=== PATIENT | female | born 1965 ===

== ENCOUNTER 2021-08-03 15:12 | Emergency (ER) | payer SELFPAY ==
[~2021-08-03] VITALS: Ht 165 cm; Wt 70.0 kg
[2021-08-03 15:34] LABS: BASOPHILS # (AUTO) 0.1 10^3/uL (0.0-0.1); BASOPHILS % (AUTO) 1 % (0-10); EOSINOPHILS % (AUTO) 0 % (0-10); HEMATOCRIT 37 % (35-52); HEMOGLOBIN 13.3 g/dL (11.5-16.0); LYMPHOCYTES # (AUTO) 0.7 10^3/uL (1.0-4.0); LYMPHOCYTES % (AUTO) 4 % (12-44); MEAN CORPUSCULAR HEMOGLOBIN 28 pg (25-34); MEAN CORPUSCULAR HGB CONC 36 g/dL (32-36); MEAN CORPUSCULAR VOLUME 80 fL (80-99); MEAN PLATELET VOLUME 12.1 fL (9.0-12.2); MONOCYTES # (AUTO) 0.3 10^3/uL (0.0-1.0); MONOCYTES % (AUTO) 2 % (0-12); NEUTROPHILS # (AUTO) 14.1 10^3/uL (1.8-7.8); NEUTROPHILS % (AUTO) 92 % (42-75); PLATELET COUNT 399 10^3/uL (130-400); WHITE BLOOD COUNT 15.3 10^3/uL (4.3-11.0)
[2021-08-03 15:44] LABS: PROTHROMBIN TIME PATIENT 13.8 SEC (12.2-14.7)
--- NOTE | 2021-08-03 15:53 | Diagnostic Imaging Report ---
EXAMINATION: CT head without contrast. TECHNIQUE: Multiple contiguous axial images were obtained through the brain without the use of intravenous contrast. All CT scans use one or more of the following dose optimizing techniques: automated exposure control, MA and/or KvP adjustment based on patient size and exam type or iterative reconstruction. HISTORY: Altered mental status. COMPARISON: None available. FINDINGS: The talbot-white matter differentiation is normal. No mass effect or midline shift. The ventricles are normal in size and configuration. Basilar cisterns are patent. There are no intra- or extra-axial fluid collections. There is no intracranial hemorrhage. The orbits are normal. Paranasal sinuses are normal. Mastoid air cells are clear. No soft tissue abnormality is seen. No osseus lesions or fractures are seen. IMPRESSION: No acute intracranial abnormality. Dictated by: Dictated on workstation # [id number]
[2021-08-03 16:02] LABS: LYMPHOCYTES % (MANUAL) 3 %; MONOCYTES % (MANUAL) 4 %; NEUTROPHILS % (MANUAL) 93 %
[2021-08-03 16:03] LABS: POLYCHROMASIA SLIGHT; TARGET CELLS SLIGHT; TOXIC GRANULATION/VACUOLAZATIO 4+
[2021-08-03 16:07] LABS: CARBON DIOXIDE 27 MMOL/L (21-32); CHLORIDE 69 MMOL/L (98-107); POTASSIUM 4.8 MMOL/L (3.6-5.0); SODIUM 119 MMOL/L (135-145)
[2021-08-03 16:08] LABS: ALANINE AMINOTRANSFERASE 23 U/L (0-55); ALKALINE PHOSPHATASE 244 U/L (40-136); BILIRUBIN,TOTAL 0.4 MG/DL (0.1-1.0); BUN/CREATININE RATIO 25; CALCIUM 7.2 MG/DL (8.5-10.1); GFR ESTIMATED 10; GLUCOSE 115 MG/DL (70-105); MAGNESIUM 6.1 MG/DL (1.6-2.4); TOTAL PROTEIN 6.3 GM/DL (6.4-8.2)
[2021-08-03 16:09] LABS: AMYLASE 1882 U/L (25-125)
[2021-08-03 16:22] LABS: AMPHETAMINE SCREEN, URINE NEGATIVE (NEGATIVE); BARBITURATE SCREEN URINE NEGATIVE (NEGATIVE); BENZODIAZEPINES SCREEN URINE NEGATIVE (NEGATIVE); CANNABINOID SCREEN, URINE NEGATIVE (NEGATIVE); COCAINE SCREEN URINE NEGATIVE (NEGATIVE); METHADONE STAT NEGATIVE (NEGATIVE); METHAMPHETAMINE SCREEN URINE S NEGATIVE (NEGATIVE); OPIATE SCREEN URINE NEGATIVE (NEGATIVE); OXYCODONE STAT NEGATIVE (NEGATIVE); PROPOXYPHENE STAT NEGATIVE (NEGATIVE); TRICYCLIC ANTIDEPRESSANTS SCRE NEGATIVE (NEGATIVE)
[2021-08-03 16:27] LABS: CLARITY,URINE CLOUDY; COLOR,URINE YELLOW
[2021-08-03 16:28] LABS: BACTERIA,URINE LARGE /HPF; BILIRUBIN,URINE 1+ (NEGATIVE); GLUCOSE, URINE (UA) NEGATIVE (NEGATIVE); KETONES,URINE NEGATIVE (NEGATIVE); LEUKOCYTE ESTERASE ,URINE NEGATIVE (NEGATIVE); NITRITE,URINE NEGATIVE (NEGATIVE); PROTEIN,URINE 2+ (NEGATIVE)
--- NOTE | 2021-08-03 16:52 | Diagnostic Imaging Report ---
EXAMINATION: CT chest, abdomen and pelvis without intravenous contrast. TECHNIQUE: Multiple contiguous axial images were obtained through the chest, abdomen and pelvis without intravenous contrast. All CT scans use one or more of the following dose optimizing techniques: automated exposure control, MA and/or KvP adjustment based on patient size and exam type or iterative reconstruction. HISTORY: Sepsis. COMPARISON: None available. FINDINGS: There is mucous plugging in the right lower lobe with atelectasis or pneumonia and a small pleural effusion. No pneumothorax. No suspicious nodules. There is no axillary or supraclavicular lymphadenopathy. There is no mediastinal lymphadenopathy. Heart size is normal. There are no coronary artery calcifications. No pericardial effusion. Aorta is normal in caliber. There is perihepatic fluid, a portion of which is likely subcapsular. There is mass effect on the liver. No focal liver lesions are seen. There is no biliary ductal dilation. Gallbladder is normal. There is a 2.0 x 1.3 cm low attenuating area in the head of the pancreas. No ductal dilation or atrophy. Spleen is normal. Adrenal glands are normal. The kidneys are normal. There is no hydronephrosis. The urinary catheter is coiled in the urinary bladder. The bladder is mostly decompressed. The cecum is ill-defined and surrounded by fluid. The fluid leads to the paracolic gutter and the subcapsular liver collection. No free air is seen. No evidence for bowel obstruction. There is omental stranding. No abdominal or pelvic lymphadenopathy. Aorta is normal in caliber without aneurysm. There are no suspicious osseus lesions. IMPRESSION: 1. Poorly defined cecum surrounded by fluid and/or soft tissue with fluid collection extending towards the paracolic gutter and involving the subcapsular portion of the liver. This may represent a cecal mass or severe cecal inflammation, but mass is favored. Contrast-enhanced CT would be helpful but ultimately a colonoscopy would be required for definitive diagnosis. 2. The fluid about the liver and cecum may be infected. No free air is seen to indicate doug perforation. 3. Mucus plugging in the right lower lobe with a small right effusion and atelectasis or pneumonia in the right lower lobe. Dictated by: Dictated on workstation # [id number]
[2021-08-03] MEDS ORDERED: PIPERACILLIN SODIUM/TAZOBACTAM 4.5 GM in NS (IVPB) 100 ML IV ONE (17:30)
[2021-08-03] MEDS: NS IV 1000 ML 1,000 ML IV SCH ×2 (17:53→19:08)
[2021-08-03 19:11] LABS: ALLENS TEST NEGATIVE; INSPIRED O2 ROOM AIR; VENTILATOR NO
[2021-08-03 19:12] LABS: ABG OXYGEN SATURATION 93 % (94-100); ABG PCO2 36 MMHG (35-45); ABG PH 7.49 (7.37-7.43); ABG PO2 61 MMHG (79-93); ABG TCO2 28.5 MMOL/L (21.0-31.0)
[2021-08-03 19:36] VITALS: BP 117/59
--- NOTE | 2021-08-03 19:36 | ED Back Pain ---
General Chief Complaint: Back Problems Stated Complaint: AMS Nursing Triage Note: Patient has been brought to ER by EMS with vague complaint of back pain and stomach pain. Patient reports pain since May. Patient is very vague. Source of Information: Patient Exam Limitations: No Limitations History of Present Illness Date Seen by Provider: Aug 03, 2021 Time Seen by Provider: 14:00 Initial Comments Patient is a 56-year-old female who presents with home with complaints of chronic back pain for the past several months and increased confusion today. Patient has a history of alcohol abuse and drinks 18 beers daily. She has not drank in the past 24 hours. Patient is alert and oriented to person. She reports abdominal pain back pain and tenderness. She reports generalized weakness. She denies chest pain palpitations, cough, fever chills, nausea vomiting or sweats. History is limited as patient is a poor historian. No witnessed tremors seizures, hallucinations. Additional history obtained from her significant other. Location: Lumbar Spine Timing/Duration: Other Pain/Injury Location: Other Radiation: Other Method of Injury: Other Modifying Factors: Improves With Other Associated Symptoms: other Allergies and Home Medications Allergies Coded Allergies: No Known Drug Allergies (Unverified , 08/03/21) Patient Home Medication List Home Medication List Reviewed: Yes Review of Systems Constitutional: see HPI EENTM: see HPI Respiratory: see HPI Cardiovascular: see HPI Gastrointestinal: see HPI Genitourinary: see HPI : No Musculoskeletal: see HPI Skin: see HPI Psychiatric/Neurological: See HPI All Other Systems Reviewed Negative Unless Noted: Yes Past Eoofjam-Dyvfbf-Gsnfob Hx Patient Social History Tobacco Use?: Yes Tobacco type used: Cigarettes Smoking Status: Current Everyday Smoker Use of E-Cig and/or Vaping dev: No Substance use?: No Alcohol Use?: Yes Alcohol type: Beer Alcohol Frequency: Daily Pt feels they are or have been: Unable to obtain Physical Exam Vital Signs Vital Signs - First Documented 08/03/21 15:34 Temp 36.0 Pulse 110 Resp 18 B/P (MAP) 111/74 (86) Pulse Ox 100 O2 Delivery Room Air Capillary Refill : Height, Weight, BMI Height: '" Weight: lbs. oz. kg; 25.00 BMI Method: General Appearance: No Apparent Distress, Anxious, Other (Chronically ill- appearing) HEENT: PERRL/EOMI, Normal ENT Inspection, Pharynx Normal Neck: Non Tender, Supple Cardiovascular: Regular Rate, Rhythm, No Edema, No Gallop Respiratory: Lungs Clear Gastrointestinal: Soft, Distended, Tenderness (Periumbilical) Back: Normal Inspection, No CVA Tenderness Neurologic/Psychiatric: Alert, No Motor/Sensory Deficits Skin: Cool Progress/Results/Core Measures Results/Orders Lab Results Laboratory Tests Test 08/03/21 14:26 08/03/21 16:05 08/03/21 16:20 08/03/21 17:05 Range/Units White Blood Count 15.3 H 4.3-11.0 10^3/uL Red Blood Count 4.70 3.80-5.11 10^6/uL Hemoglobin 13.3 11.5-16.0 g/dL Hematocrit 37 35-52 % Mean Corpuscular Volume 80 80-99 fL Mean Corpuscular Hemoglobin 28 25-34 pg Mean Corpuscular Hemoglobin Concent 36 32-36 g/dL Red Cell Distribution Width 15.2 H 10.0-14.5 % Platelet Count 399 130-400 10^3/uL Mean Platelet Volume 12.1 9.0-12.2 fL Immature Granulocyte % (Auto) 2 % Neutrophils (%) (Auto) 92 H 42-75 % Lymphocytes (%) (Auto) 4 L 12-44 % Monocytes (%) (Auto) 2 0-12 % Eosinophils (%) (Auto) 0 0-10 % Basophils (%) (Auto) 1 0-10 % Neutrophils # (Auto) 14.1 H 1.8-7.8 10^3/uL Lymphocytes # (Auto) 0.7 L 1.0-4.0 10^3/uL Monocytes # (Auto) 0.3 0.0-1.0 10^3/uL Eosinophils # (Auto) 0.0 0.0-0.3 10^3/uL Basophils # (Auto) 0.1 0.0-0.1 10^3/uL Immature Granulocyte # (Auto) 0.3 H 0.0-0.1 10^3/uL Neutrophils % (Manual) 93 % Lymphocytes % (Manual) 3 % Monocytes % (Manual) 4 % Toxic Granulation 4+ Polychromasia SLIGHT Basophilic Stippling SLIGHT Target Cells SLIGHT Prothrombin Time 13.8 12.2-14.7 SEC INR Comment 1.0 0.8-1.4 Activated Partial Thromboplast Time 24 24-35 SEC Sodium Level 119 *L 135-145 MMOL/L Potassium Level 4.8 3.6-5.0 MMOL/L Chloride Level 69 L 98-107 MMOL/L Carbon Dioxide Level 27 21-32 MMOL/L Anion Gap 23 H 5-14 MMOL/L Blood Urea Nitrogen 120 *H 7-18 MG/DL Creatinine 4.80 H 0.60-1.30 MG/DL Estimat Glomerular Filtration Rate 10 BUN/Creatinine Ratio 25 Glucose Level 115 H 70-105 MG/DL Lactic Acid Level 2.42 *H 2.71 *H 0.50-2.00 MMOL/L Calcium Level 7.2 L 8.5-10.1 MG/DL Corrected Calcium 8.8 8.5-10.1 MG/DL Magnesium Level 6.1 *H 1.6-2.4 MG/DL Total Bilirubin 0.4 0.1-1.0 MG/DL Aspartate Amino Transf (AST/SGOT) 45 H 5-34 U/L Alanine Aminotransferase (ALT/SGPT) 23 0-55 U/L Alkaline Phosphatase 244 H 40-136 U/L C-Reactive Protein 42.11 H <0.50 MG/DL Total Protein 6.3 L 6.4-8.2 GM/DL Albumin 2.0 L 3.2-4.5 GM/DL Amylase Level 1882 H 25-125 U/L Serum Alcohol < 10 <10 MG/DL Urine Opiates Screen NEGATIVE NEGATIVE Urine Oxycodone Screen NEGATIVE NEGATIVE Urine Methadone Screen NEGATIVE NEGATIVE Urine Propoxyphene Screen NEGATIVE NEGATIVE Urine Barbiturates Screen NEGATIVE NEGATIVE Ur Tricyclic Antidepressants Screen NEGATIVE NEGATIVE Urine Phencyclidine Screen NEGATIVE NEGATIVE Urine Amphetamines Screen NEGATIVE NEGATIVE Urine Methamphetamines Screen NEGATIVE NEGATIVE Urine Benzodiazepines Screen NEGATIVE NEGATIVE Urine Cocaine Screen NEGATIVE NEGATIVE Urine Cannabinoids Screen NEGATIVE NEGATIVE Urine Color YELLOW Urine Clarity CLOUDY Urine pH 6.0 5-9 Urine Specific Adin >=1.030 1.016-1.022 Urine Protein 2+ H NEGATIVE Urine Glucose (UA) NEGATIVE NEGATIVE Urine Ketones NEGATIVE NEGATIVE Urine Nitrite NEGATIVE NEGATIVE Urine Bilirubin 1+ H NEGATIVE Urine Urobilinogen 0.2 < = 1.0 MG/DL Urine Leukocyte Esterase NEGATIVE NEGATIVE Urine RBC (Auto) 2+ H NEGATIVE Urine RBC NONE /HPF Urine WBC NONE /HPF Urine Renal Epithelial Cells 5-10 /HPF Urine Crystals NONE /LPF Urine Bacteria LARGE H /HPF Urine Casts PRESENT /LPF Urine Hyaline Casts 10-25 H /LPF Urine Mucus NEGATIVE /LPF Urine Culture Indicated YES Test 08/03/21 19:05 Range/Units Blood Gas Puncture Site RIGHT WRIST Blood Gas Patient Temperature 36.0 Arterial Blood pH 7.49 H 7.37-7.43 Arterial Blood Partial Pressure CO2 36 35-45 MMHG Arterial Blood Partial Pressure O2 61 L 79-93 MMHG Arterial Blood HCO3 27 23-27 MMOL/L Arterial Blood Total CO2 28.5 21.0-31.0 MMOL/L Arterial Blood Oxygen Saturation 93 L 94-100 % Arterial Blood Base Excess 4.0 H -2.5-2.5 MMOL/L Edson Test NEGATIVE Blood Gas Ventilator Setting NO Blood Gas Inspired Oxygen ROOM AIR My Orders Orders - KAVEH VALLADARES DO Cbc With Automated Diff (08/03/21 15:22) Comprehensive Metabolic Panel (08/03/21 15:22) Protime With Inr (08/03/21 15:22) Partial Thromboplastin Time (08/03/21 15:22) Ekg Tracing (08/03/21 15:22) Ua Culture If Indicated (08/03/21 15:22) Amylase (08/03/21 15:22) Crp Fs (08/03/21 15:22) Alcohol (08/03/21 15:23) Magnesium (08/03/21 15:23) Drug Screen Stat (Urine) (08/03/21 15:23) Ct Head Wo (08/03/21 15:23) Ammonia (08/03/21 14:26) Manual Differential (08/03/21 14:26) Ct Chest/Abdomen/Pelvis Wo (08/03/21 16:10) Urine Culture (08/03/21 16:20) Lactic Acid Analyzer (08/03/21 16:38) Blood Culture (08/03/21 16:38) Piperacillin Sodium/Tazobactam (Zosyn Vi (08/03/21 17:30) Ns Iv 1000 Ml (Sodium Chloride 0.9%) (08/03/21 17:45) Arterial Blood Gas (08/03/21 18:38) Medications Given in ED Current Medications Medications Dose Ordered Sig/Laura Route Start Time Stop Time Status Last Admin Dose Admin Piperacillin Sod/ Tazobactam Sod 4.5 gm/Sodium Chloride 100 ml @ 200 mls/hr ONCE ONCE IV 08/03/21 17:30 08/03/21 17:59 DC 08/03/21 17:42 200 MLS/HR Vital Signs/I&O 08/03/21 15:34 Temp 36.0 Pulse 110 Resp 18 B/P (MAP) 111/74 (86) Pulse Ox 100 O2 Delivery Room Air Blood Pressure Mean: 86 Departure Communication (Admissions) CT head: No acute findings per radiology CT chest/abdomen/pelvis: Cecal inflammation with possible mass per radiology report Patient with altered's mental status likely secondary to encephalopathy, sepsis, possible pancreatitis, acute kidney injury, hyponatremia and alcohol withdrawal. IV fluids, thiamine, antibiotics given. Vital signs stable with treatment. Patient accepted to [facility]. Impression Primary Impression: Metabolic encephalopathy Additional Impressions: Sepsis Colitis Acute kidney injury Hyponatremia Pancreatitis Alcohol withdrawal Disposition: [facility] Condition: Critical Transfer Method of Transfer: EMS KAVEH VALLADARES DO Aug 03, 2021 19:36
[2021-08-04] MEDS ORDERED: THIAMINE INJECTION 100 MG in NS (IVPB) 50 ML IV SCH (09:00)
== END 2021-08-03 20:05 | disposition short-term general hospital (02) ==
LOC: ER FS 15:16
DX: G93.41 Metabolic encephalopathy (principal); A41.9 Sepsis, unspecified organism; K52.9 Noninfective gastroenteritis and colitis, unspecified; N17.9 Acute kidney failure, unspecified; E87.1 Hypo-osmolality and hyponatremia; K85.90 Acute pancreatitis without necrosis or infection, unspecified; F10.239 Alcohol dependence with withdrawal, unspecified; F17.210 Nicotine dependence, cigarettes, uncomplicated
CPT/HCPCS: 36415; 70450; 71250; 74176; 80053; 80306; 81000; 82140; 82150; 82805; 83605; 83735; 85007; 85027; 85610; 85730; 86141; 87040; 87088; 93005; 99291; G0480; 80320